=== PATIENT | male | born 1940 | race Caucasian/White ===

== ENCOUNTER 2021-05-12 10:57 | Inpatient (IN) | payer MEDICARE ==
[~2021-05-12] VITALS: Ht 190.5 cm; Wt 97.5 kg
[~2021-05-12 10:57] MED LIST: GADOTERATE 10 MMOL/20ML SYR ONE
[2021-05-12] MEDS ORDERED: SODIUM CHLORIDE 0.9% 1,000 ML IV ONE (11:30)
[2021-05-12] MEDS ORDERED: SODIUM CHLORIDE FLUSH 10ML SYR IVF ONE (11:30)
[2021-05-12] MEDS ORDERED: PLEASE ENTER WEIGHT MC SCH (11:30)
[2021-05-12] MEDS ORDERED: SODIUM CHLORIDE 0.9% 1,000ML IVBOLUS ONE (11:30)
[2021-05-12] MEDS ORDERED: PLEASE ENTER ALLERGIES MC SCH (11:30)
--- NOTE | 2021-05-12 11:48 | NUR ---
PT PLACED ON ALL ROOM MONITORING. HEART MONITOR SHOWING AFIB RATE 130S. VS RECHECKED/UPDATED IN COMPUTER. EKG COMPLETED. ERP NOTIFIED OF HR/RHYTHM. IV PLACED, LABS DRAWN WITH START INCLUDING BC X 1. URINAL AND CALL LIGHT WITHIN REACH. AT BS.
[2021-05-12 12:07] LABS: BASOPHILS % (AUTO) 0 % (0-1); EOSINOPHILS % (AUTO) 0 % (1-7); LYMPHOCYTES % (AUTO) 7 % (22-44); MEAN CORPUSCULAR HEMOGLOBIN 30.8 pg (27.5-34.5); MEAN CORPUSCULAR HGB CONC 35.2 g/dL (33.2-36.2); MEAN PLATELET VOLUME 8.2 fL (7.4-10.4); MONOCYTES % (AUTO) 8 % (2-9); NEUTROPHILS % (AUTO) 84 % (42-75); PLATELET COUNT 219 x10^3/uL (130-400); RED BLOOD COUNT 4.94 x10^6/uL (4.38-5.82); RED CELL DISTRIBUTION WIDTH 15.4 % (9.4-14.8)
--- NOTE | 2021-05-12 12:12 | NUR ---
CXR RESULTED, NO CONTRAINDICATION FOR IVF. IVF BOLUS STARTED. CALL LIGHT WITHIN REACH.
[2021-05-12 12:16] LABS: ALANINE AMINOTRANSFERASE 25 U/L (12-78); ALBUMIN 2.9 g/dL (3.4-5.0); ANION GAP 12 mmol/L (5-15); CALCIUM 9.3 mg/dL (8.5-10.1); CHLORIDE 101 mmol/L (98-107); CREATININE 1.11 mg/dL (0.7-1.3)
[2021-05-12 12:18] LABS: ALKALINE PHOSPHATASE 82 U/L (45-117); TOTAL PROTEIN 7.4 g/dL (6.4-8.2)
--- NOTE | 2021-05-12 12:57 | NUR ---
ATTEMPT TO PLACE CATHETER, UNSUCCESSFUL WITH FULL STOP NEAR PROSTATE AREA. ERP NOTIFIED.
[2021-05-12] MEDS ORDERED: LEVETIRACETAM 500 MG in SODIUM CHLORIDE 0.9% 100 ML IV SCH (13:30)
[2021-05-12] MEDS ORDERED: DEXAMETHASONE 4 MG/ML, 1ML IVPush ONE (13:30)
--- NOTE | 2021-05-12 13:35 | NUR ---
MED REC COMPLETED TO BEST OF 'S KNOWLEDGE. CALL LIGHT WITHIN REACH.
[2021-05-12] MEDS ORDERED: HYDR-2214 PO (13:36)
[2021-05-12] MEDS ORDERED: VIT D3 PO (13:36)
[2021-05-12] MEDS ORDERED: BP PILL PO (13:36)
[2021-05-12] MEDS ORDERED: RIVA20TA PO (13:36)
[2021-05-12] MEDS ORDERED: ROSU10TA2 PO (13:36)
[2021-05-12] MEDS ORDERED: SODIUM CHLORIDE FLUSH 10ML SYR IVF PRN (14:00)
[2021-05-12] MEDS ORDERED: DEXAMETHASONE 4 MG/ML, 1ML ONE (14:02)
--- NOTE | 2021-05-12 14:35 | NUR ---
[facility] IN TO SEE PT.
[2021-05-12] MEDS ORDERED: ONDANSETRON 2MG/ML, 2ML IVPush PRN (15:00)
[2021-05-12] MEDS ORDERED: ACETAMINOPHEN 325 MG TABLET PO PRN (15:00)
[2021-05-12] MEDS ORDERED: HYDROcodone/APAP 5/325 TABLET PO PRN (15:00)
[2021-05-12] MEDS ORDERED: ONDANSETRON ODT 4 MG PO PRN (15:00)
[2021-05-12] MEDS: DEXAMETHASONE 4 MG TABLET PO SCH ×3 (15:22→23:42)
--- NOTE | 2021-05-12 15:22 | NUR ---
PT SLEEPING, NAD. VSS/UPDATED IN COMPUTER.
--- NOTE | 2021-05-12 16:19 | NUR ---
PT SLEEPING INTERMITTENTLY, NAD. VSS.
--- NOTE | 2021-05-12 16:32 | NUR ---
PT IN MRI.
--- NOTE | 2021-05-12 16:57 | NUR ---
REPORT TO JENNIFER, PT READY FOR TRANSPORT WHEN BACK FROM MRI.
[2021-05-12 18:18] VITALS: BP 128/85
[2021-05-12] MEDS ORDERED: HEPARIN 5,000 UNITS/ML, 1ML IV ONE (18:30)
[2021-05-12] MEDS ORDERED: HEPARIN 5,000 UNITS/ML, 1ML IV PRN (18:30)
[2021-05-12] MEDS ORDERED: HEPARIN 25,000 UNITS/250ML PMX 250 ML IV PRN (18:30)
[2021-05-12] MEDS: SODIUM CHLORIDE 0.9% 1,000 ML IV SCH (20:00)
[2021-05-12] MEDS: LEVETIRACETAM 500 MG TABLET PO SCH (20:38)
[2021-05-12] MEDS: ATORVASTATIN 40 MG TABLET PO SCH (20:38)
[2021-05-12 20:52] VITALS: BP 130/89
[2021-05-13 01:13] VITALS: BP 135/92
[2021-05-13 03:29] LABS: BASOPHILS % (AUTO) 0 % (0-1); EOSINOPHILS % (AUTO) 0 % (1-7); LYMPHOCYTES % (AUTO) 6 % (22-44); MEAN CORPUSCULAR HEMOGLOBIN 30.2 pg (27.5-34.5); MEAN CORPUSCULAR HGB CONC 34.4 g/dL (33.2-36.2); MEAN PLATELET VOLUME 7.8 fL (7.4-10.4); MONOCYTES % (AUTO) 5 % (2-9); NEUTROPHILS % (AUTO) 89 % (42-75); PLATELET COUNT 197 x10^3/uL (130-400); RED BLOOD COUNT 4.76 x10^6/uL (4.38-5.82); RED CELL DISTRIBUTION WIDTH 15.1 % (9.4-14.8)
[2021-05-13 03:38] LABS: ANION GAP 8 mmol/L (5-15); CALCIUM 8.7 mg/dL (8.5-10.1); CHLORIDE 104 mmol/L (98-107)
[2021-05-13 03:40] LABS: CREATININE 0.81 mg/dL (0.7-1.3)
[2021-05-13] MEDS: DEXAMETHASONE 4 MG TABLET PO SCH ×5 (03:55→21:30)
[2021-05-13 07:10] VITALS: BP 126/81
[2021-05-13] MEDS: CHOLECALCIFEROL 1,000 UNIT TABLET PO SCH (08:32)
[2021-05-13] MEDS: LEVETIRACETAM 500 MG TABLET PO SCH ×2 (08:32→21:30)
[2021-05-13] MEDS ORDERED: BP PILL PO SCH (09:00)
[2021-05-13 09:05] LABS: MICROSCOPIC INDICATED
[2021-05-13] MEDS ORDERED: CEFTRIAXONE 1,000 MG IVPB ONE (10:00)
[2021-05-13] MEDS: SODIUM CHLORIDE 0.9% 1,000 ML IV SCH (10:15)
[2021-05-13] MEDS ORDERED: CEFTRIAXONE 1,000 MG in DEXTROSE 5% 50 ML IVPB ONE (10:30)
[2021-05-13] MEDS ORDERED: LOSA1TAB22 PO (12:00)
[2021-05-13] MEDS ORDERED: METO-282 PO (12:05)
[2021-05-13 13:40] VITALS: BP 101/66
[2021-05-13] MEDS: RIVAROXABAN 20 MG TABLET PO SCH (16:59)
[2021-05-13 18:42] VITALS: BP 104/72
[2021-05-13] MEDS: ATORVASTATIN 40 MG TABLET PO SCH (21:30)
[2021-05-14] MEDS: DEXAMETHASONE 4 MG TABLET PO SCH ×6 (00:03→21:07)
[2021-05-14 00:13] VITALS: BP 143/90
[2021-05-14] MEDS: SODIUM CHLORIDE 0.9% 1,000 ML IV SCH (02:06)
[2021-05-14 04:43] LABS: BASOPHILS % (AUTO) 0 % (0-1); EOSINOPHILS % (AUTO) 0 % (1-7); LYMPHOCYTES % (AUTO) 5 % (22-44); MEAN CORPUSCULAR HEMOGLOBIN 30.6 pg (27.5-34.5); MEAN CORPUSCULAR HGB CONC 34.7 g/dL (33.2-36.2); MEAN PLATELET VOLUME 7.7 fL (7.4-10.4); MONOCYTES % (AUTO) 4 % (2-9); NEUTROPHILS % (AUTO) 90 % (42-75); PLATELET COUNT 234 x10^3/uL (130-400); RED BLOOD COUNT 4.53 x10^6/uL (4.38-5.82); RED CELL DISTRIBUTION WIDTH 15.5 % (9.4-14.8)
[2021-05-14 04:51] LABS: ANION GAP 5 mmol/L (5-15); CALCIUM 9.1 mg/dL (8.5-10.1); CHLORIDE 107 mmol/L (98-107)
[2021-05-14 04:53] LABS: CREATININE 0.91 mg/dL (0.7-1.3)
[2021-05-14] MEDS: CHOLECALCIFEROL 1,000 UNIT TABLET PO SCH (08:07)
[2021-05-14] MEDS: LEVETIRACETAM 500 MG TABLET PO SCH ×2 (08:07→21:07)
[2021-05-14 08:22] VITALS: BP 110/71
[2021-05-14] MEDS: CEFTRIAXONE 1,000 MG in DEXTROSE 5% 50 ML IVPB SCH (11:00)
[2021-05-14 14:00] VITALS: BP 112/72
[2021-05-14] MEDS: RIVAROXABAN 20 MG TABLET PO SCH (16:41)
[2021-05-14 18:46] VITALS: BP 109/70
[2021-05-14] MEDS: ATORVASTATIN 40 MG TABLET PO SCH (21:07)
[2021-05-14] MEDS: MOXIFLOXACIN OPHTH O.5%, 3ML LEFTEYE SCH (21:07)
[2021-05-14] MEDS: predniSOLONE OPHTH SUSP 1%, 5ML LEFTEYE SCH (21:07)
[2021-05-15] MEDS: DEXAMETHASONE 4 MG TABLET PO SCH ×5 (00:21→16:15)
[2021-05-15 01:20] VITALS: BP 113/75
[2021-05-15 06:52] VITALS: BP 123/88
[2021-05-15] MEDS: LEVETIRACETAM 500 MG TABLET PO SCH (09:02)
[2021-05-15] MEDS: CHOLECALCIFEROL 1,000 UNIT TABLET PO SCH (09:02)
[2021-05-15] MEDS: MOXIFLOXACIN OPHTH O.5%, 3ML LEFTEYE SCH (09:03)
[2021-05-15] MEDS: CEFTRIAXONE 1,000 MG in DEXTROSE 5% 50 ML IVPB SCH (09:03)
[2021-05-15] MEDS: predniSOLONE OPHTH SUSP 1%, 5ML LEFTEYE SCH (09:03)
[2021-05-15] MEDS ORDERED: HYDROCHLOROTHIAZIDE 25 MG TABLET PO SCH (11:25)
[2021-05-15] MEDS ORDERED: LOSARTAN 100 MG TAB PO SCH (11:25)
[2021-05-15] MEDS ORDERED: PRED5DRO15 LEFTEYE (11:58)
[2021-05-15] MEDS ORDERED: LEVE500T53 PO (11:58)
[2021-05-15] MEDS ORDERED: DEXA4TAB66 PO (11:58)
[2021-05-15] MEDS ORDERED: MOXI3DRO11 LEFTEYE (11:58)
[2021-05-15 12:47] VITALS: BP 113/76
[2021-05-15] MEDS ORDERED: CEFTRIAXONE 1,000 MG in DEXTROSE 5% 50 ML IVPB ONE (14:00)
[2021-05-15] MEDS: RIVAROXABAN 20 MG TABLET PO SCH (16:16)
== END 2021-05-15 17:45 | disposition home or self-care (01) | DRG 80 ==
LOC: ED 13:36 → EDIP 14:25 → 4NE 18:01 → 4NW 05-13 14:45
PROVIDERS: ADMIT Internal Medicine; ATTEND Hospitalist
PROC: 0T9B70Z Drainage of Bladder with Drainage Device, Via Natural or Artificial Opening (ICD-10-PCS; principal; 2021-05-13)
DX: G93.6 Cerebral edema (principal); G93.41 Metabolic encephalopathy; C71.9 Malignant neoplasm of brain, unspecified; I48.20 Chronic atrial fibrillation, unspecified; C78.7 Secondary malignant neoplasm of liver and intrahepatic bile duct; N39.0 Urinary tract infection, site not specified; C79.51 Secondary malignant neoplasm of bone; Z66 Do not resuscitate; R32 Unspecified urinary incontinence; B96.1 Klebsiella pneumoniae [K. pneumoniae] as the cause of diseases classified elsewhere; C43.9 Malignant melanoma of skin, unspecified; E78.5 Hyperlipidemia, unspecified; I10 Essential (primary) hypertension; I48.0 Paroxysmal atrial fibrillation; R26.2 Difficulty in walking, not elsewhere classified; Z79.01 Long term (current) use of anticoagulants; Z85.46 Personal history of malignant neoplasm of prostate; Z88.0 Allergy status to penicillin
CPT/HCPCS: 36415; 70450; 70553; 71045; 80048; 80053; 81001; 83735; 85025; 85520; 87077; 87086; 87186; 93005; 96374; G0378; J0696; J1100; J1644; J1953; A9575; J7030